=== PATIENT | female | born 1995 | race Caucasian/White ===

== ENCOUNTER 2022-06-03 18:04 | Emergency (ER) | payer OTHER ==
[~2022-06-03] VITALS: Ht 170.2 cm; Wt 93.1 kg
[2022-06-03] MEDS ORDERED: AMOX/K CLAV875 M1 PO (18:42)
[2022-06-03] MEDS ORDERED: ZPAK PO (18:42)
[2022-06-03 19:20] VITALS: BP 166/75
== END 2022-06-03 19:50 | disposition home or self-care (01) | DRG 605 ==
LOC: ED 18:04
DX: S61.552A Open bite of left wrist, initial encounter (principal); W55.01XA Bitten by cat, initial encounter

== ENCOUNTER 2022-08-06 11:51 | Emergency (ER) | payer OTHER ==
[~2022-08-06] VITALS: Ht 170.2 cm; Wt 94.1 kg
[~2022-08-06 11:51] MED LIST: AMOX/K CLAV875 M1 PO; ZPAK PO
[2022-08-06 12:17] VITALS: BP 128/97
[2022-08-06 12:31] VITALS: BP 124/85
[2022-08-06 12:45] VITALS: BP 139/99
[2022-08-06] MEDS ORDERED: AMOX/K CLAV875 M1 PO (12:51)
[2022-08-06 13:39] VITALS: BP 139/99
== END 2022-08-06 13:46 | disposition home or self-care (01) | DRG 605 ==
LOC: ED 11:51
DX: S60.571A Other superficial bite of hand of right hand, initial encounter (principal); W55.01XA Bitten by cat, initial encounter